=== PATIENT | male | born 1990 | race Caucasian/White ===

== ENCOUNTER 2016-10-25 20:11 | Emergency (ER) | payer OTHER ==
[~2016-10-25] VITALS: Ht 180.3 cm; Wt 102.3 kg
[2016-10-25 20:24] VITALS: BP 143/91; PULSE 68; RESP 18; O2SAT 99
--- NOTE | 2016-10-25 20:59 | DRSVH ---
PROCEDURE: CT BRAIN WITHOUT CONTRAST ([id number]) INDICATIONS: increasing migraine, marfan TECHNIQUE: Noncontrast 4.5 mm thick angled axial sections acquired from the foramen magnum to the vertex, with c oronal reformats. COMPARISON: None. FINDINGS: Image quality: Excellent. CSF spaces: Basal cisterns are patent. No extra-axial fluid collections. Ventricles are normal in size and shape. Brain: No midline shift. No intracranial masses or hemorrhage. Dinero-white matter interface is norm al. Skull and face: Calvarium and visualized facial bones are intact, without suspicious lesions. Sinuses: Visualized sinuses and mastoids are clear. IMPRESSION: No acute intracranial abnormality. Dictated by: Kim Hernandez M.D. on 10/25/2016 at 20:50 Approved by: Kim Hernandez M.D. on 10/25/2016 at 20:58
--- NOTE | 2016-10-25 21:42 | ED.REPORT ---
HPI-Headache Date of Service Oct 25, 2016 ED Provider: Shayan Cabrera MD The pt is a 26 y/o male with a hx of MVP, Marfans syndrome,and migraines who presents to the ED complaining of a worsening headache for a couple of days. His pain is generalized but intermittently gets worse in the occipital lobe. Associated sx include photophobia and scintillating scotoma. He also complains of a bump of the back of his head that has been gradually getting bigger for the last year. He denies fever, change in sensation or motor function of the extremities and difficulty walking. His current headache is different from his previous migraine headaches. Nursing Notes Stated Complaint: MIGRAINE Chief Complaint: Headache Nursing Notes Reviewed: Yes Allergies: Coded Allergies: No Known Allergies (Unverified , 10/25/16) General Time Seen by MD: 21:37 Chief Complaint Headache Hx Obtained From: Patient Arrived By: Walk-in Sudden in Onset?: Yes Onset Occurred: 2 days ago Symptom Duration: Since onset Location: : Generalized Quality: Painful Radiation: : Does not radiate Severity: Current: Moderate Severity: Maximum: Moderate Recent Healthcare: No recent doctor visit Similar Sx Previous: No Past Medical History Past Medical History Migraines MVP Marfan's syndrome Past Surgical History none reported Smoking History Never Smoker Social History Alcohol Use: "Social" Drug Use: Denies drug use Other Social History: Good social support Ambulatory Status Independent Review of Systems Reports; scintillating scotoma Reports: bump on the back of his head Denies: change in sensation or motor function of the extremities Eyes: Reports: Photophobia Neurologic: Reports: Headache, Denies: Problem walking Complete sys rev & neg: except as marked. Physical Exam Initial Vital Signs Vital Signs (First) Date Time Temp Pulse Resp B/P Pulse Ox O2 Delivery O2 Flow Rate FiO2 10/25/16 20:24 36.0 68 18 143/91 99 Room Air Initial VS: Reviewed, Vital signs abnormal Respiratory: Breath sounds normal, Clear to auscultation, No respiratory distress Cardiovascular: Regular rate & rhythm, Heart sounds normal, Intact distal pulses Abdomen / GI: Soft, Non-tender, No guarding, No rebound, No distention Extremities: Vascular intact, Neuro intact, No swelling, No tenderness Skin: Warm, Dry, No cyanosis General/Constitutional: Awake, Alert, No acute distress, Well appearing, Cooperative Afebrile Head / Eyes: Atraumatic 2cm prominent subcutaneous sub-tissue mass in the scalp. Neck: Atraumatic, Supple, Full range of motion No neck stiffness Neurologic: Oriented X3, Speech NL, No motor deficits, No sensory deficits Interpretation & Diagnostics ECG Interpretation ECG Interpretation: Normal sinus rhythm. Rate 68. Incomplete RBBB and LAFB Time: 20:35 Interpreted by: ED physician CT Head Interpretation IMPRESSION: No acute intracranial abnormality. Dictated by: Kim Hernandez M.D. on 10/25/2016 at 20:50 Approved by: Kim Hernandez M.D. on 10/25/2016 at 20:58 Study: Head CT no contrast Interpretation / Wet Read by: Interpret - Radiologist Re-Eval/Medical Decision Med Decision/Clinical Course 26-year-old male with a history of migraine headaches presents with a worsening pattern of headaches over the last several days. He has a history of possible Marfan's, details unknown. His current headache is fairly mild and was relieved with Toradol. CT scan of his head is negative. He also has a prominent area on his right posterior scalp which does not significantly show on the CT scan. He is being discharged home to follow-up with his regular doctor in improved condition. Source of Hx: Old records Re-Evaluation/Progress #1: Time of Eval: 21:48 Re-Evaluation/Progress Note: Rechecked pt. Discussed CT results. He understands. All questions answered Re-Evaluation/Progress #2: Time of Eval: 23:06 Re-Evaluation/Progress Note: Discussed lab results, diagnosis and plan to discharge after a toradol shot. Pt understands and agrees with the plan. F/U instruction and RTER warning given. All questions addressed. Counseled Regarding: Diagnosis, Lab results, Need for follow-up, When/why to return to ED Discharge & Departure Impression: Primary Impression: Headache Headache type: unspecified Headache chronicity pattern: unspecified pattern Intractability: not intractable Qualified Code: R51 - Headache Discharge Condition All VS Reviewed: Yes Condition: Stable Patient Instructions: Acute Headache (ED) Additional Instructions: Atypical headache pattern, normal CT scan. There is no obvious reason found for your change in headache pattern. Tylenol and/or ibuprofen as needed. Follow-up with your primary doctor in the next couple of days if not improving. You can call me at [phone] between the hours of 9 PM and 6 AM for the next couple nights he have any questions or concerns. Referrals: Emmy Marin PA-C (PCP) Scribe Attestation Portions of this note were transcribed by Michelle Damico. I,, personally performed the history, physical exam and medical decision-making;I reviewed and confirmed the accuracy of the information in the transcribed note. Signed by Marleny Smith. 10/25/16 copies to: Emmy Marin PA-C, Howard L MD Oct 25, 2016 21:42 Michelle Damico Oct 25, 2016 21:50
[2016-10-25 23:45] VITALS: BP 144/75; PULSE 71; O2SAT 98
== END 2016-10-25 23:46 ==
LOC: SED 20:11
DX: R51 Headache (principal); H53.149 Visual discomfort, unspecified; H53.19 Other subjective visual disturbances; R22.0 Localized swelling, mass and lump, head; Q87.40 Marfan syndrome, unspecified
CPT/HCPCS: 70450; 93005; 96372; 99284; J1885